=== PATIENT | male | born 1965 | race Asian ===

== ENCOUNTER 2018-02-28 14:19 | Emergency (ER) | payer MEDICAID ==
[~2018-02-28] VITALS: Ht 165.1 cm; Wt 76.2 kg
[2018-02-28 15:15] LABS: BASOPHIL % 0.2 % (0-2); PLATELET COUNT 322 x10^3mcL (130-400); RED CELL DISTRIBUTION WIDTH 13.7 % (11.5-14.5)
[2018-02-28 15:22] LABS: CALCIUM 8.6 mg/dL (8.5-10.1); CARBON DIOXIDE 21.1 mmol/L (21-32); CHLORIDE SERUM 103 mmol/L (98-107); CREATININE SERUM 0.8 mg/dL (0.7-1.3); GFR1 > 60 mL/min; GLUCOSE SERUM 129 mg/dL (74-106); SODIUM SERUM 135 mmol/L (136-145)
[2018-02-28 15:26] LABS: ALBUMIN 4.1 g/dL (3.4-5.0); ALKALINE PHOSPHATASE 54 U/L (46-116); ALT/SGPT 69 U/L (16-63); AST/SGOT 30 U/L (15-37); BILIRUBIN TOTAL 0.4 mg/dL (0.20-1.00); LIPASE 157 IU/L (73-393)
[2018-02-28 15:35] LABS: TOTAL PROTEIN, SERUM 8.3 g/dL (6.4-8.2)
[2018-02-28] MEDS ORDERED: INVOKANA300 MG PO (15:35)
[2018-02-28 18:42] VITALS: BP 125/73
== END 2018-02-28 18:42 | disposition left against medical advice (07) ==
LOC: ED 14:19
PROVIDERS: Emergency Medicine
DX: R07.89 Other chest pain (principal); R10.84 Generalized abdominal pain; R11.2 Nausea with vomiting, unspecified; R19.7 Diarrhea, unspecified
CPT/HCPCS: J1885; J2405; J2550; J3010; Q0092

== ENCOUNTER 2019-03-29 12:15 | Emergency (ER) | payer MEDICAID ==
[~2019-03-29] VITALS: Ht 165.1 cm; Wt 72.6 kg
[~2019-03-29 12:15] MED LIST: INVOKANA300 MG PO
[2019-03-29 12:27] VITALS: Ht 165.1 cm; Wt 72.6 kg
[2019-03-29 14:45] LABS: BASOPHIL % 0.3 % (0-2); PLATELET COUNT 321 x10^3mcL (130-400); RED CELL DISTRIBUTION WIDTH 13.5 % (11.5-14.5)
[2019-03-29 14:54] LABS: CALCIUM 8.8 mg/dL (8.5-10.1); CARBON DIOXIDE 25.8 mmol/L (21-32); CHLORIDE SERUM 101 mmol/L (98-107); CREATININE SERUM 0.9 mg/dL (0.7-1.3); GFR1 > 60 mL/min; GLUCOSE SERUM 333 mg/dL (74-106); POTASSIUM SERUM 4.1 mmol/L (3.5-5.1); SODIUM SERUM 135 mmol/L (136-145)
[2019-03-29 15:02] LABS: ALBUMIN 3.6 g/dL (3.4-5.0); ALKALINE PHOSPHATASE 58 U/L (46-116); ALT/SGPT 47 U/L (16-63); AST/SGOT 13 U/L (15-37); BILIRUBIN TOTAL 0.3 mg/dL (0.20-1.00); TOTAL PROTEIN, SERUM 7.2 g/dL (6.4-8.2)
[2019-03-29 15:03] LABS: CHOLESTEROL 239 mg/dL (<200); HDL CHOLESTEROL 30 mg/dL (40-60); TRIGLYCERIDES 578 mg/dL (<150)
[2019-03-29 15:58] LABS: AMPHETAMINE QUAL UR NONE DETECTED (See below)
[2019-03-29 16:44] VITALS: BP 124/78
== END 2019-03-29 16:44 | disposition left against medical advice (07) ==
LOC: ED 12:15
PROVIDERS: Emergency Medicine
DX: R51 Headache (principal); R07.89 Other chest pain; M54.12 Radiculopathy, cervical region; E11.65 Type 2 diabetes mellitus with hyperglycemia; E78.00 Pure hypercholesterolemia, unspecified; F17.210 Nicotine dependence, cigarettes, uncomplicated
CPT/HCPCS: 36415; 82962; 83880; 99406; Q0092